=== PATIENT | female | born 1950 | race Caucasian/White ===

== ENCOUNTER 2024-03-05 17:57 | Emergency (ER) | payer MEDICARE, SELFPAY ==
[2024-03-05 18:07] VITALS: BP 138/67; PULSE 89; RESP 20; TEMP 36.4; O2SAT 96; BMI 33.4
[2024-03-05 19:11] VITALS: BP 141/65; PULSE 89; RESP 18; TEMP 36.6
--- NOTE | 2024-03-05 20:04 | ED.GENADULT ---
HPI - General Adult General Chief complaint: General Medical Stated complaint: needs med assessment/pain Time Seen by Provider: 03/05/24 19:42 Source: patient Mode of arrival: ambulatory Limitations: no limitations History of Present Illness ED Provider: roshan STEVENS narrative: Patient is a 73-year-old female presenting to the emergency department with complaint of pain to bilateral legs and upper extremities for the past week. Patient states that she has been on lamotrigine for her neuropathic pain for the past 15-20 years. She was previously being prescribed this medication by her PCP in [place] but she moved to [place]. She states that he had continued to prescribe the medication while she was living in [place]. She recently began seeing a new PCP who stated to her that he was not comfortable continuing to prescribe the lamotrigine, and changed her over to gabapentin. Patient states that she has been on gabapentin in the past and it has not been helpful in decreasing her pain, it also makes her feel lightheaded and woozy. She states that she is currently caring for her who has dementia and she is having difficulty caring for him due to her pain. complaint: Chronic pain Onset (ago): week(s) Related Data Previous Rx's ?Medication ?Instructions ?Recorded lamotrigine 150 mg tablet 150 mg PO BID #60 tabs 03/05/24 Allergies Allergy/AdvReac Type Severity Reaction Status Date / Time No Known Allergies Allergy Verified 03/05/24 18:08 Review of Systems Review of Systems: As per HPI. Yes all other systems are reviewed and are negative Constitutional: Constitutional: Reports as per HPI [facility] Social History Social History Advance Directives: No Advance Directives Information Provided: No Do you have a plan to hurt others: No Plan Physical Exam ED Vital Signs: Vital Signs - 24 hr 03/05/24 18:07 03/05/24 19:11 Temperature 97.5 F 97.9 F Pulse Rate 89 89 Respiratory Rate 20 18 Blood Pressure 138/67 141/65 H Pulse Oximetry 96 Oxygen Delivery Method Room Air BMI result Body Mass Index 33.4 Vital signs have been reviewed and appear to be correct. Blood pressure normal. Heart rate normal. Respiratory rate normal. Temperature normal. Oxygen saturation normal. Const General: cooperative, healthy appearing and no acute distress Orientation/consciousness: oriented to person, oriented to place, oriented to time and patient oriented x3 Limitations: no limitations HENMT Head: Yes normocephalic and Yes atraumatic Ears: external ears normal General nose exam: Normal external nose present Face and sinus: Yes face symmetric Mouth: oropharynx normal and moist mucous membranes Throat: Yes uvula midline Eyes Pupils: Equal, round and reactive pupils present Neck Neck: Yes normal visual inspection and Yes supple Resp Effort & Inspection: normal respiratory effort and able to speak in complete sentences Auscultation: clear to auscultation bilaterally Cardio Rate: regular rate Rhythm: regular rhythm Heart sounds: S1 normal heart sound present and S2 normal heart sound present GI Palpation (GI): Soft to palpation and nontender Auscultation: normoactive bowel sounds General: Yes no CVA tenderness Back/Spine/Pelvis Back: no CVA tenderness Skin General skin exam: elasticity normal and turgor normal Neuro General: oriented to person, oriented to place, oriented to time, patient oriented x3, moves all extremities, no focal motor deficits and CN's II-XI intact bilaterally Cranial nerves: Yes Equal, round and reactive pupils present Cognition (Neuro): normal cognition Extrem General: Yes full ROM, Yes no pedal edema and Yes no calf tenderness Psych Mental Status: mental status grossly normal Affect: normal affect Thought process: Normal thought process present Medical Decision Making Medical Decision Making [facility] Narrative: Patient is a 73-year-old female presenting to the emergency department with complaint of pain to bilateral legs and upper extremities for the past week. On exam patient is awake, A+Ox3, VS WNL, afebrile, normal neurological exam without focal deficits, physical exam findings as above. Given reported symptoms and physical exam findings, initial differential includes chronic pain, adverse medication effects. I had an at-length discussion with patient at bedside discussing that long-term medications cannot be dispensed from the emergency department, and that she will need to find a primary care provider willing to prescribe the lamotrigine for her. Patient requested to speak with my attending MD, Dr. Aguirre. Upon further discussion with the patient and Dr. Aguirre, the agreement was made to send a 30-day prescription with the patient understanding that she will need to find a new PCP and will not be able to return to the ED for refills of this medication. Patient verbalized understanding of and agreement with this plan. Differential Diagnosis Differential Diagnoses: The differential diagnosis associated with the presentation includes as per mdm External Record Review External record reviewed: Inpatient record, Office record and Outpatient record Prescription Management I considered prescription management with: Other Discharge Plan Discharge Clinical Impression: Chronic pain Patient Disposition: Home, Self-Care Instructions: Chronic Pain (ED) Additional Instructions: You were seen in the emergency department today for chronic pain after a recent medication change. You are being prescribed a 1 month supply of lamotrigine, which you were previously prescribed for your chronic pain. It is important that you find a new primary care provider, as you will not be able to return to the emergency department for refills of this medication. You are being referred to pain management. Return to the emergency department with new or concerning symptoms. Prescriptions: New lamotrigine 150 mg tablet 150 mg PO BID Qty: 60 0RF Referrals: Bucky Awad MD [Physician] - Print Language: Andorran
[2024-03-05 21:12] VITALS: BP 141/65; PULSE 89; RESP 18; TEMP 36.6
== END 2024-03-05 21:13 | disposition home or self-care (01) ==
PROVIDERS: Emergency Provider Emergency Medicine Emergency Medical Services; PCP Internal Medicine
DX: G89.29 Other chronic pain (principal); M79.605 Pain in left leg; M79.604 Pain in right leg
CPT/HCPCS: 99282; 99283

== ENCOUNTER 2024-04-13 14:52 | Outpatient (AMB) | payer MEDICARE, SELFPAY ==
[2024-04-13 15:16] VITALS: BP 123/69; PULSE 92; O2SAT 96; BMI 30.7
--- NOTE | 2024-04-13 15:16 | MHC.OFFVIS ---
Vital Signs 04/13/24 15:16 Height 5 ft 6 in Weight 190 lb BMI 30.7 BP 123/69 Blood Pressure Location Rt brachial Position Sitting Pulse 92 Pulse Source Pulse Oximeter Pulse Oximetry (%) 96 Oxygen Delivery Method Room Air Intake Visit Reasons: Neuropathic pain -throughout body Allergies No Known Allergies Allergy (Verified 04/13/24 15:17) Medication List - Last Reconciled 04/13/24 by Tish Olson lamotrigine 150 mg PO BID HPI Comments Details: Kinga is a very pleasant 74-year-old female who presents to the office today for evaluation management of her chronic neuropathic pain She has been suffering with this pain for almost 30 years. Endorses all-over burning pain that is worse with touch Pain today is rated as a 8/10, constant For the last 10 years she has been taking duloxetine and Lamictal which provided her good relief and improved quality of life Recently changed primary care doctors, he is prescribing her duloxetine but did not feel comfortable prescribing Lamictal for off-label use Since being off Lamictal patient has been suffering, recently she did go to the ER where she received a short script has not been able to get it filled since. Today provided records from [facility] which shows that she has been taking this medication since at least 2021 from her for current pharmacy States she had recent labs a couple of months ago, was not told there were any abnormalities. She will provide us with copies of these for review. 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 She states that since she has been off this medication has been extremely difficult to care for her . States all aspects of her life are suffering Review of Systems Const All systems reviewed & are unremarkable except as noted in HPI and below Physical Exam Vital Signs: Last Vital Signs Pulse 92 04/13/24 15:16 BP 123/69 04/13/24 15:16 Pulse Ox 96 04/13/24 15:16 Oxygen Delivery Method Room Air 04/13/24 15:16 BMI result Body Mass Index 30.7 General: awake, alert, oriented. Answers questions appropriately. Fully engaged in examination. Skin: warm, dry, intact HEENT: Normocephalic. Hearing intact. Cardiac: External chest normal in appearance. Respiratory: No cough, audible wheezing or stridor. Abdomen: without gross distension. MS: No obvious swelling or deformities. Able to stand on bilateral tiptoes and bilateral heels.? Able to transition from sit to stand unassisted. Ambulates with bilaterally normal heel strike and toe off Postop shoes bilaterally Neurological: Oriented to person, place, time and situation. Thought process intact. No gait abnormalities appreciated. Psychiatric: Appropriate mood and affect. Good judgment and insight. Assessment & Plan Assessment & Plan (1) Chronic pain syndrome: Code(s): G89.4 - Chronic pain syndrome Category: Medical (2) Neuropathy: Code(s): G62.9 - Polyneuropathy, unspecified Category: Medical Plan Prescription sent for lamotrigine 150 mg p.o. twice daily Patient will obtain results of her most recent liver and kidney function. She is aware that we will not send refills of the medication until we have obtained these results for review. She will call the office if she has not had these tests performed over the last year and we will order them. All questions and concerns were answered, patient agrees with the plan. Follow-up in 6 months, sooner if needed Medications: Refilled lamotrigine 150 mg PO BID 60 tabs 0RF Coding Level of Care Code New Pt Level 4 (08343) Complex EM visit Add On G2211 Diagnoses Chronic pain syndrome G89.4 Neuropathy G62.9
== END 2024-04-13 15:35 | disposition home or self-care (01) ==
PROVIDERS: PCP Internal Medicine; Visit Provider Registered Nurse Emergency
DX: G89.4 Chronic pain syndrome (principal); G62.9 Polyneuropathy, unspecified
CPT/HCPCS: 99204; G2211

== ENCOUNTER → 2024-04-13 14:52 | Outpatient (BNVA) | payer MEDICARE, SELFPAY | PROVIDERS: PCP Internal Medicine; Visit Provider Registered Nurse Emergency | DX: G89.4 Chronic pain syndrome (principal); G62.9 Polyneuropathy, unspecified | CPT/HCPCS: 99202 ==

== ENCOUNTER 2024-05-14 10:18 | Outpatient (REF) | payer MEDICARE, SELFPAY ==
[2024-05-14 10:32] LABS: MANUAL DIFF FLAG NO
[2024-05-14 10:54] LABS: Basophils Percent Auto 0.7 % (0-2); Eosinophils Absolute Auto 0.2 X10*3/uL (0.0-0.4); Eosinophils Percent Auto 3.9 % (0-4); Hemoglobin 12.5 g/dl (12.0-16.0); Imm Gran Abs Auto 0.02 X10*3/uL (0.00-0.03); Imm Gran Pct Auto 0.4 % (0.0-0.4); Lymphocytes Absolute Auto 1.4 X10*3/uL (1.2-4.9); Mean Corpuscular HGB Conc 33.8 g/dl (31.0-35.0); Mean Corpuscular Hemoglobin 30.7 pg (27.0-33.0); Mean Corpuscular Volume 90.9 fL (80.0-98.0); Mean Platelet Volume 9.1 fL (9.4-12.3); Monocytes Absolute Auto 0.6 X10*3/uL (0.1-1.2); Monocytes Percent Auto 9.9 % (2-11); Neutrophils Absolute Auto 3.4 x10*3/uL (2.0-8.3); Neutrophils Percent Auto 60.1 % (45-73); Platelet Count 285 X10*3/uL (160-400); Red Blood Count 4.07 X10*6/uL (4.20-5.50); Red Cell Distribution Width 12.4 % (11.0-16.0); White Blood Count 5.6 X10*3/uL (4.8-10.8)
[2024-05-14 11:52] LABS: Alanine Aminotransferase 22 U/L (0-31); Alkaline Phosphatase 80 U/L (39-117); Anion Gap 12 (12-20); Aspartate Amino Transferase 18 U/L (5-31); Bilirubin Direct 0.1 mg/dL (0.0-0.5); Bilirubin Total 0.4 mg/dL (0.0-1.0); Blood Urea Nitrogen 24 mg/dL (9-16); Calcium 8.8 mg/dL (8.4-10.2); Carbon Dioxide 24 mmol/L (22-29); Chloride 107 mmol/L (96-108); Estimated Glomerular Filt Rate > 60; Glucose Random 176 mg/dL (60-115); Potassium 4.3 mmol/L (3.3-5.1); Sodium 139 mmol/L (135-145); Total Protein 7.4 g/dL (6.5-8.0)
== END 2024-05-14 10:19 | disposition home or self-care (01) ==
LOC: HO.LAB 10:18
PROVIDERS: PCP Internal Medicine; Visit Provider Registered Nurse Emergency
DX: G62.9 Polyneuropathy, unspecified (principal)
CPT/HCPCS: 36415; 80048; 80076; 85025